=== PATIENT | male | born 1980 | race Caucasian/White ===

== ENCOUNTER 2021-12-14 10:55 | Emergency (ER) | payer MEDICAID ==
[2021-12-14 11:45] LABS: BASOPHILS # (AUTO) 0.1 10^3/uL (0.0-0.1); BASOPHILS % (AUTO) 0.9 %; EOSINOPHILS % (AUTO) 0.5 %; HCT - HEMATOCRIT 50.2 % (42.0-52.0); HGB - HEMOGLOBIN 18.4 g/dL (14.0-18.0); LYMPHOCYTES % (AUTO) 15.9 %; MEAN CORPUSCULAR HEMOGLOBIN 35.9 pg (27.0-31.0); MEAN CORPUSCULAR HGB CONC 36.7 g/dL (32.0-36.0); MEAN PLATELET VOLUME 9.6 fL (7.4-11.4); MONOCYTES # (AUTO) 0.8 10^3/uL (0.0-1.0); MONOCYTES % (AUTO) 12.7 %; NEUTROPHILS # (AUTO) 4.5 10^3/uL (1.5-6.6); NEUTROPHILS % (AUTO) 69.7 %; PLT - PLATELET COUNT 198 10^3/uL (130-450); RED BLOOD COUNT 5.12 10^6/uL (4.70-6.10); RED CELL DISTRIBUTION WIDTH 11.2 % (12.0-15.0); WHITE BLOOD COUNT 6.4 x10^3/uL (4.8-10.8)
[2021-12-14 12:09] LABS: ALBUMIN 5.1 g/dL (3.2-5.5); ALBUMIN/GLOBULIN RATIO 1.6 (1.0-2.2); BILIRUBIN,TOTAL 2.1 mg/dL (0.2-1.0); CALCIUM 10.6 mg/dL (8.5-10.3); POTASSIUM 3.5 mmol/L (3.5-5.0); TOTAL PROTEIN 8.3 g/dL (6.7-8.2)
--- NOTE | 2021-12-14 12:34 | XRAY Report ---
PROCEDURE: Chest 1 View X-Ray INDICATIONS: Chest pain TECHNIQUE: One view of the chest was acquired. COMPARISON: None FINDINGS: Surgical changes and devices: None. Lungs and pleura: No pleural effusions or pneumothorax. Lungs are clear. Mediastinum: Mediastinal contours appear normal. Heart size is normal. Bones and chest wall: No suspicious bony lesions. Overlying soft tissues appear unremarkable. IMPRESSION: No acute cardiopulmonary findings Reviewed by: Ramakrishna Coles MD on 12/14/2021 11:33 AM BRAYDEN Approved by: Ramakrishna Coles MD on 12/14/2021 11:33 AM BRAYDEN Station ID: [id number]
[2021-12-14] MEDS ORDERED: METOPROLOL SUCCINATE 25 MG TABLET PO STA (12:43)
[2021-12-14] MEDS ORDERED: SODIUM CHLORIDE 0.9% 1,000 ML IV STA (12:43)
--- NOTE | 2021-12-14 13:03 | ED Physician Documentation ---
PD HPI CHEST PAIN - Stated complaint Stated Complaint: FEET,HANDS NUMBNESS,HEART RACING - Chief complaint Chief Complaint: Cardiac - History obtained from History obtained from: Patient - Additional information Additional information: Patient is a 41-year-old male presenting for evaluation of feeling his heart racing, chest tightness as well as paresthesias to his hands and feet which Have been ongoing for months. Patient reports having the heart racing and chest tightness in the past and was seen at the [facility] late last year and started on metoprolol after an unremarkable work-up. He reported that did help his symptoms but he only had a 1 month prescription and was not able to get it refilled and has been off of it since February. Since that time he has continued to feel his heart racing and chest tightness and more recently since this summer has been having numbness and tingling in hands and his feet.Nothing makes his symptoms better or worse. He denies drug use or caffeine use. He does use marijuana. He also admits to 4 drinks of alcohol daily. He denies tremors or withdrawal symptoms if he does not have any alcohol and denies having any alcohol today. He denies difficulty breathing, dizziness, vomiting or diarrhea.He does not currently take any medications. Review of Systems Constitutional: denies: Fever Nose: denies: Congestion Cardiac: reports: Palpitations Respiratory: denies: Dyspnea GI: denies: Abdominal Pain, Vomiting : denies: Dysuria Musculoskeletal: denies: Back pain Neurologic: denies: Syncope, Headache PD PAST MEDICAL HISTORY - Past Medical History Past Medical History: Yes Cardiovascular: Hypertension - Past Surgical History Past Surgical History: No - Present Medications Home Medications: Ambulatory Orders Medication Instructions Recorded Confirmed Metoprolol Succinate [Toprol Xl] 25 mg PO DAILY #30 tablet 12/14/21 - Allergies Allergies/Adverse Reactions: Allergies Allergy/AdvReac Type Severity Reaction Status Date / Time No Known Drug Allergies Allergy Verified 12/14/21 11:18 - Social History Does the pt smoke?: No Smoking Status: Never smoker Does the pt drink ETOH?: Yes ETOH Use: Beer Does the pt have substance abuse?: No - Immunizations Immunizations are current?: Yes PD ED PE NORMAL - General General: Alert and oriented X 3, No acute distress, Well developed/nourished - HEENT HEENT: Atraumatic, Moist mucous membranes - Neck Neck: Supple, no meningeal sign, No bony TTP - Cardiac Cardiac: Strong equal pulses, Other (Tachycardic, regular rhythm) - Respiratory Respiratory: No respiratory distress, Clear bilaterally - Abdomen Abdomen: Normal bowel sounds, Soft, Non tender, Non distended - Derm Derm: Warm and dry - Extremities Extremities: No edema, No calf tenderness / cord, Other (Pedal pulses intact) - Neuro Neuro: Alert and oriented X 3, pencil inspector 2-12 intact, No motor deficit, No sensory deficit (Sensation grossly intact), Normal speech Results - Vitals Vitals: Vital Signs - 24 hr 12/14/21 12/14/21 12/14/21 11:14 13:18 14:34 Temperature 36.9 C Heart Rate 135 H 81 88 Respiratory 20 10 L 13 Rate Blood Pressure 172/117 H 142/104 H 158/97 H O2 Saturation 100 100 100 Oxygen O2 Source Room air - EKG (time done) 1115 Rate: Rate (enter#) (114) Rhythm: Sinus tachycardia Horner: Normal Ischemia: No: ST elevation c/w ischemia - Labs Labs: Laboratory Tests 12/14/21 12/14/21 12/14/21 11:36 11:36 11:36 WBC 6.4 RBC 5.12 Hgb 18.4 H Hct 50.2 MCV 98.0 H MCH 35.9 H MCHC 36.7 H RDW 11.2 L Plt Count 198 MPV 9.6 Neut # (Auto) 4.5 Lymph # (Auto) 1.0 L Garden # (Auto) 0.8 Eos # (Auto) 0.0 Baso # (Auto) 0.1 Absolute Nucleated RBC 0.00 Nucleated RBC % 0.0 D-Dimer Sodium 140 Potassium 3.5 Chloride 104 Carbon Dioxide 22 Anion Gap 14.0 H BUN 13 Creatinine 1.0 Estimated GFR (MDRD) 82 L Glucose 166 H Calcium 10.6 H Magnesium 2.0 Total Bilirubin 2.1 H AST 169 H ALT 130 H Alkaline Phosphatase 87 Troponin I High Sens 3.5 Total Protein 8.3 H Albumin 5.1 Globulin 3.2 Albumin/Globulin Ratio 1.6 Lipase 50 TSH 12/14/21 12/14/21 11:36 11:36 WBC RBC Hgb Hct MCV MCH MCHC RDW Plt Count MPV Neut # (Auto) Lymph # (Auto) Garden # (Auto) Eos # (Auto) Baso # (Auto) Absolute Nucleated RBC Nucleated RBC % D-Dimer < 200.0 L Sodium Potassium Chloride Carbon Dioxide Anion Gap BUN Creatinine Estimated GFR (MDRD) Glucose Calcium Magnesium Total Bilirubin AST ALT Alkaline Phosphatase Troponin I High Sens Total Protein Albumin Globulin Albumin/Globulin Ratio Lipase TSH 1.73 PD MEDICAL DECISION MAKING - ED course Complexity details: reviewed results, re-evaluated patient ED course: 1305 - Patient feeling relatively unchanged. No current chest pain or difficulty breathing. Reviewed work-up Including elevated bilirubin and liver markers. Patient has no abdominal tenderness and denies having abdominal pain, vomiting. Aware needs follow up for labs. Pt agreeable to trial of metoprolol. Pt presenting for evaluation of ongoing palpitations, noted to be tachycardic (sinus tachycardia). Pt had previously been on metoprolol for this out of this for months and symptoms returned around same time. Pt reports heavy alcohol use but does not appear to be in acute withdrawal. Labs reviewed. No signs of ca rdiac ischemia or blood clot. Pt feeling improved with IV fluids and metoprolol. Encouraged establishing care with PCP. Discussed need for close follow-up as an outpatient for further testing. Counseled on concerning symptoms to return for. Departure - Departure Disposition: Home, Self Care Clinical Impression: Sinus tachycardia, Abnormal liver function tests Condition: Stable Instructions: Tachycardia Follow-Up: Ema Razo ARNP [Credentialed Staff Provider] - Prescriptions: Metoprolol Succinate [Toprol Xl] 25 mg PO DAILY #30 tablet Comments: You were evaluated for a fast heart rate. The exact cause of your heart rate is unclear but does appear to improve with medications. I sent a prescription for metoprolol to [facility] in [place]. Your liver markers were slightly elevated which could be related to alcohol use as you are not currently having abdominal pain. I have included the name of a primary care provider [facility] that I recommend you call on Thursday to establish care with and for close follow-up. I would recommend Working on decreasing our stopping your alcohol consumption. If you have any worsening symptoms please consider return to the ER. [facility] [address] [place] [address] Main The [facility] offers a monitored and safe setting for individuals withdrawing from alcohol and drugs, and counseling for individuals experiencing a mental health crisis. All services are provided in a 10-bed facility where intensive medical monitoring is required along with stabilization services. The goal of these services is to assess a clients mental health and substance use disorder related needs, and assist them in accessing the services they need to recover. Discharge Date/Time: 12/14/21 14:34
[2021-12-14 14:34] VITALS: BP 158/97
== END 2021-12-14 14:34 | disposition home or self-care (01) ==
LOC: ED 10:55
DX: R00.0 Tachycardia, unspecified (principal); R94.5 Abnormal results of liver function studies; I10 Essential (primary) hypertension
CPT/HCPCS: 36415; 71045; 80053; 83690; 83735; 84443; 84484; 85025; 85379; 93005; 96360; 99284; A9270

== ENCOUNTER 2022-05-04 12:38 | Emergency (ER) | payer MEDICAID ==
[2022-05-04 13:06] VITALS: BP 128/84
== END 2022-05-04 13:55 | disposition left against medical advice (07) ==
LOC: ED 12:38
DX: Z53.21 Procedure and treatment not carried out due to patient leaving prior to being seen by health care provider (principal)
CPT/HCPCS: 80053; 80307; 80320; 80329; 83690; 84443; 85025

== ENCOUNTER 2022-05-07 09:37 | Outpatient (CLI) | payer MEDICAID ==
[2022-05-07 14:23] LABS: BASOPHILS # (AUTO) 0.1 10^3/uL (0.0-0.1); BASOPHILS % (AUTO) 1.3 %; EOSINOPHILS # (AUTO) 0.1 10^3/uL (0.0-0.7); HCT - HEMATOCRIT 46.2 % (42.0-52.0); HGB - HEMOGLOBIN 16.3 g/dL (14.0-18.0); LYMPHOCYTES # (AUTO) 1.4 10^3/uL (1.5-3.5); LYMPHOCYTES % (AUTO) 29.7 %; MEAN CORPUSCULAR HEMOGLOBIN 35.1 pg (27.0-31.0); MEAN CORPUSCULAR HGB CONC 35.3 g/dL (32.0-36.0); MEAN CORPUSCULAR VOLUME 99.6 fL (80.0-94.0); MEAN PLATELET VOLUME 11.6 fL (7.4-11.4); MONOCYTES # (AUTO) 0.9 10^3/uL (0.0-1.0); MONOCYTES % (AUTO) 18.7 %; NEUTROPHILS # (AUTO) 2.2 10^3/uL (1.5-6.6); NEUTROPHILS % (AUTO) 48.1 %; PLT - PLATELET COUNT 85 10^3/uL (130-450); RED BLOOD COUNT 4.64 10^6/uL (4.70-6.10); RED CELL DISTRIBUTION WIDTH 11.4 % (12.0-15.0); WHITE BLOOD COUNT 4.5 x10^3/uL (4.8-10.8)
[2022-05-07 15:01] LABS: THYROID STIMULATING HORMONE 2.63 uIU/mL (0.34-5.60)
[2022-05-07 15:10] LABS: FOLATE 3.12 ng/mL (5.90 - >24.8)
[2022-05-07 15:17] LABS: ALBUMIN/GLOBULIN RATIO 1.4 (1.0-2.2); ALKALINE PHOSPHATASE 138 IU/L (42-121); ALT ALANINE AMINOTRANSFERASE 209 IU/L (10-60); AST ASPARTATE AMINOTRANSFERASE 600 IU/L (10-42); BILIRUBIN,TOTAL 2.4 mg/dL (0.2-1.0); BUN - BLOOD UREA NITROGEN 8 mg/dL (6-20); CALCIUM 9.3 mg/dL (8.5-10.3); CARBON DIOXIDE - CO2 26 mmol/L (21-32); CHLORIDE 100 mmol/L (101-111); CHOL/HDL RATIO 2.1 (<5.0); CHOLESTEROL 176 mg/dL; CREATININE 0.7 mg/dL (0.6-1.2); GFR - MDRD 124 (>89); GLUCOSE 108 mg/dL (70-100); HDL CHOLESTEROL 84 mg/dL; LDL CHOLESTEROL,CALCULATED 66 mg/dL; LDL/HDL RATIO 0.8 (<3.6); POTASSIUM 3.9 mmol/L (3.5-5.0); SODIUM 138 mmol/L (135-145); TOTAL PROTEIN 6.8 g/dL (6.7-8.2); TRIGLYCERIDES 130 mg/dL; VLDL CHOLESTEROL 26 mg/dL
== END 2022-05-07 09:38 | disposition home or self-care (01) ==
LOC: LAB.S 09:37
PROVIDERS: ATTEND Nurse Practitioner Acute Care
DX: K92.1 Melena (principal); Z13.228 Encounter for screening for other metabolic disorders; Z13.220 Encounter for screening for lipoid disorders; Z13.29 Encounter for screening for other suspected endocrine disorder; Z13.0 Encounter for screening for diseases of the blood and blood-forming organs and certain disorders involving the immune mechanism
CPT/HCPCS: 36415; 80053; 80061; 82306; 82607; 82746; 83721; 84443; 85025

== ENCOUNTER 2022-05-14 11:53 | Outpatient (CLI) | payer MEDICAID ==
[2022-05-15 07:10] LABS: HBsAG SCREEN Negative (Negative); HCV AB Non Reactive (Non Reactive); HEPATITIS B CORE IGM AB Negative (Negative)
== END 2022-05-14 11:54 | disposition home or self-care (01) ==
LOC: LAB.S 11:53
PROVIDERS: ATTEND Nurse Practitioner Acute Care
DX: R94.5 Abnormal results of liver function studies (principal)
CPT/HCPCS: 36415; 86705; 86709; 86803; 87340

== ENCOUNTER 2022-06-17 07:06 | Outpatient (CLI) | payer MEDICAID ==
--- NOTE | 2022-06-17 13:51 | Ultrasound Report ---
PROCEDURE: Abdomen Complete INDICATIONS: ELEVATED LIVER FUNCTION TEST TECHNIQUE: Real-time scanning was performed of the abdominal and retroperitoneal organs, with image documentatio n. COMPARISON: None FINDINGS: Liver: Liver measures 13 cm. Overall echotexture is increased. Gallbladder: Small polyps measuring up to 5 mm, possibly related to benign cholesterolosis. No dedica stefani follow-up is necessary per latest SRU guidelines. Biliary tree: CBD measures up to 6 mm. Pancreas: Unremarkable Spleen: No splenomegaly, measuring up to 10 cm. Kidneys: Right kidney measures 10 cm. Left kidney measures 11 cm. No hydronephrosis. Aorta: Nonaneurysmal Iliacs: Not well seen IVC: Patent Free fluid/miscellaneous: None IMPRESSION: Increased hepatic echotexture is most commonly seen with steatosis. No acute abnormality identified. CBD measures up to 6 mm, at the upper limit of normal. Reviewed by: Sotero Cardoza MD on 06/17/2022 1:49 PM PDT Approved by: Sotero Cardoza MD on 06/17/2022 1:49 PM PDT Station ID: [id number]
== END 2022-06-17 07:07 | disposition home or self-care (01) ==
LOC: DI 07:06
PROVIDERS: ATTEND Nurse Practitioner Acute Care
DX: R94.5 Abnormal results of liver function studies (principal)

== ENCOUNTER 2022-08-25 09:00 | Outpatient (CLI) | payer MEDICAID ==
[2022-08-25 14:28] LABS: BASOPHILS # (AUTO) 0.1 10^3/uL (0.0-0.1); EOSINOPHILS # (AUTO) 0.2 10^3/uL (0.0-0.7); EOSINOPHILS % (AUTO) 3.2 %; HCT - HEMATOCRIT 52.2 % (42.0-52.0); HGB - HEMOGLOBIN 18.4 g/dL (14.0-18.0); LYMPHOCYTES # (AUTO) 2.4 10^3/uL (1.5-3.5); LYMPHOCYTES % (AUTO) 40.1 %; MEAN CORPUSCULAR HEMOGLOBIN 34.7 pg (27.0-31.0); MEAN CORPUSCULAR HGB CONC 35.2 g/dL (32.0-36.0); MEAN CORPUSCULAR VOLUME 98.5 fL (80.0-94.0); MEAN PLATELET VOLUME 10.1 fL (7.4-11.4); MONOCYTES # (AUTO) 0.9 10^3/uL (0.0-1.0); MONOCYTES % (AUTO) 14.8 %; NEUTROPHILS # (AUTO) 2.4 10^3/uL (1.5-6.6); NEUTROPHILS % (AUTO) 40.4 %; PLT - PLATELET COUNT 233 10^3/uL (130-450); RED CELL DISTRIBUTION WIDTH 11.6 % (12.0-15.0); WHITE BLOOD COUNT 5.9 x10^3/uL (4.8-10.8)
[2022-08-25 14:45] LABS: ALBUMIN 4.1 g/dL (3.2-5.5); ALBUMIN/GLOBULIN RATIO 1.3 (1.0-2.2); CALCIUM 9.3 mg/dL (8.5-10.3); POTASSIUM 3.8 mmol/L (3.5-5.0); TOTAL PROTEIN 7.3 g/dL (6.7-8.2)
== END 2022-08-25 09:01 | disposition home or self-care (01) ==
LOC: LAB.S 09:00
PROVIDERS: ATTEND Nurse Practitioner Acute Care
DX: E55.9 Vitamin D deficiency, unspecified (principal); Z13.228 Encounter for screening for other metabolic disorders; Z13.0 Encounter for screening for diseases of the blood and blood-forming organs and certain disorders involving the immune mechanism
CPT/HCPCS: 36415; 80053; 82306; 85025

== ENCOUNTER 2022-11-22 11:14 | Outpatient (CLI) | payer MEDICAID ==
--- NOTE | 2022-11-22 20:20 | XRAY Report ---
PROCEDURE: Thoracic Spine 3 View INDICATIONS: Pain TECHNIQUE: 3 view(s) of the thoracic spine were acquired. COMPARISON: None. FINDINGS: Bones: No fractures or dislocations. No suspicious bony lesions. 12 pairs of ribs are noted, and a ppear intact where visualized. Soft tissues: No paravertebral stripe thickening. IMPRESSION: Unremarkable thoracic spine radiographs Reviewed by: Ramakrishna Coles MD on 11/22/2022 7:19 PM AKRODO Approved by: Ramakrishna Coles MD on 11/22/2022 7:19 PM AKDT Station ID: [id number]
--- NOTE | 2022-11-22 21:32 | XRAY Report ---
PROCEDURE: Lumbar Spine 2 View INDICATIONS: SPINE XRAY TECHNIQUE: 2 view(s) of the lumbar spine were acquired. COMPARISON: None. FINDINGS: Bones: 5 [id number] vertebrae are present. There is normal bony alignment. No vertebral body compression fractures. No suspicious bony lesions. Soft tissues: Overlying bowel gas pattern is normal. No suspicious soft tissue calcifications. IMPRESSION: Unremarkable lumbar spine radiographs Reviewed by: Ramakrishna Coles MD on 11/22/2022 8:31 PM BRAYDEN Approved by: Ramakrishna Coles MD on 11/22/2022 8:31 PM AKDT Station ID: [id number]
== END 2022-11-22 11:15 | disposition home or self-care (01) ==
LOC: DI.S 11:14
PROVIDERS: ATTEND Nurse Practitioner Acute Care
DX: M54.6 Pain in thoracic spine (principal); M54.50 Low back pain, unspecified; G89.29 Other chronic pain

== ENCOUNTER 2023-04-27 10:34 | Outpatient (CLI) | payer MEDICAID ==
[2023-04-27 15:11] LABS: BASOPHILS % (AUTO) 0.6 %; EOSINOPHILS # (AUTO) 0.1 10^3/uL (0.0-0.7); EOSINOPHILS % (AUTO) 2.1 %; HGB - HEMOGLOBIN 18.1 g/dL (14.0-18.0); LYMPHOCYTES # (AUTO) 1.8 10^3/uL (1.5-3.5); LYMPHOCYTES % (AUTO) 28.7 %; MEAN CORPUSCULAR HEMOGLOBIN 35.4 pg (27.0-31.0); MEAN CORPUSCULAR HGB CONC 35.5 g/dL (32.0-36.0); MEAN CORPUSCULAR VOLUME 99.8 fL (80.0-94.0); MEAN PLATELET VOLUME 9.9 fL (7.4-11.4); MONOCYTES % (AUTO) 16.2 %; NEUTROPHILS # (AUTO) 3.3 10^3/uL (1.5-6.6); NEUTROPHILS % (AUTO) 51.9 %; PLT - PLATELET COUNT 243 10^3/uL (130-450); RED BLOOD COUNT 5.11 10^6/uL (4.70-6.10); WHITE BLOOD COUNT 6.3 x10^3/uL (4.8-10.8)
[2023-04-27 16:02] LABS: ALBUMIN 4.5 g/dL (3.2-5.5); ALBUMIN/GLOBULIN RATIO 1.9 (1.0-2.2); BILIRUBIN,TOTAL 1.3 mg/dL (0.2-1.0); CALCIUM 9.7 mg/dL (8.5-10.3); POTASSIUM 3.8 mmol/L (3.5-4.5); TOTAL PROTEIN 6.9 g/dL (6.4-8.9)
== END 2023-04-27 10:35 | disposition home or self-care (01) ==
LOC: LAB.S 10:34
PROVIDERS: ATTEND Nurse Practitioner Acute Care
DX: E55.9 Vitamin D deficiency, unspecified (principal); F10.10 Alcohol abuse, uncomplicated; Z13.228 Encounter for screening for other metabolic disorders; Z13.0 Encounter for screening for diseases of the blood and blood-forming organs and certain disorders involving the immune mechanism
CPT/HCPCS: 36415; 80053; 82306; 84425; 85025